=== PATIENT | female | born 1960 ===

== ENCOUNTER 2018-09-23 07:33 | Outpatient (CLI) | payer OTHER | END 2018-09-23 07:34 | disposition home or self-care (01) | LOC: C.MAMMO 07:33 | DX: Z12.31 Encounter for screening mammogram for malignant neoplasm of breast (principal) ==

== ENCOUNTER 2018-10-14 08:58 | Outpatient (CLI) | payer OTHER | END 2018-10-14 08:59 | disposition home or self-care (01) | LOC: C.MAMMO 08:59 | DX: R92.2 Inconclusive mammogram (principal) ==

== ENCOUNTER 2018-10-26 10:17 | Outpatient (CLI) | payer OTHER | END 2018-10-26 13:05 | disposition home or self-care (01) | LOC: C.SPRAD 10:17 ==